=== PATIENT | male | born 1950 | race Caucasian/White ===

== ENCOUNTER 2025-01-05 06:28 | Day surgery (SDC) | payer MEDICARE, OTHER, SELFPAY ==
[2025-01-05 08:14] LABS: Glucose - Point of Care 115 mg/dl (70-99)
== END 2025-01-05 09:41 | disposition home or self-care (01) ==
LOC: GI 06:28
PROVIDERS: ATTENDING PHYSICIAN Internal Medicine Gastroenterology
DX: K22.70 Barrett's esophagus without dysplasia (principal); K31.7 Polyp of stomach and duodenum; K29.70 Gastritis, unspecified, without bleeding
CPT/HCPCS: 43239; 82962; 88305; 88342

== ENCOUNTER → 2025-01-06 10:48 | Outpatient (REF) | payer MEDICARE, OTHER, SELFPAY | LOC: HWRAD 10:48 | PROVIDERS: ATTENDING PHYSICIAN Family Medicine | DX: R91.1 Solitary pulmonary nodule (principal) | CPT/HCPCS: 71250 ==

== ENCOUNTER → 2025-01-16 16:46 | Outpatient (REF) | payer MEDICARE, OTHER, SELFPAY | LOC: RAD 16:46 | PROVIDERS: ATTENDING PHYSICIAN Family Medicine | DX: I25.10 Atherosclerotic heart disease of native coronary artery without angina pectoris (principal) | CPT/HCPCS: 75571 ==